=== PATIENT | male | born 1965 | race Caucasian/White ===

== ENCOUNTER 2019-08-23 09:07 | Emergency (ER) | payer OTHER ==
[~2019-08-23] VITALS: Ht 180.3 cm; Wt 63.0 kg
[2019-08-23 09:36] VITALS: Ht 180.3 cm; Wt 63.0 kg
[2019-08-23 11:27] VITALS: BP 131/64
== END 2019-08-23 11:27 | disposition home or self-care (01) ==
LOC: ED 09:07
DX: K40.90 Unilateral inguinal hernia, without obstruction or gangrene, not specified as recurrent (principal)